=== PATIENT | male | born 1985 | race Caucasian/White ===

== ENCOUNTER 2024-04-04 23:24 | Emergency (ER) | payer OTHER, SELFPAY ==
[2024-04-04 23:31] VITALS: BP 135/84
[2024-04-05 01:17] VITALS: BMI 22.8
[2024-04-05] MEDS: MOTRIN 600 MG PO (02:40)
--- NOTE | 2024-04-05 03:27 | ED.MUSCINJ ---
HPI-Injury
General
Chief Complaint: Musculo-Skeletal Complaint
Source: patient and family (Mother reports patient fell onto his right hand)
Exam Limitations: none
Time Seen by Provider: 04/05/24 03:00
Nursing documentation reviewed up to this point in time: agreed with
History of Present Illness-Injury
Initial Injury comments:
39-year-old male slipped and fell onto his right hand, has pain in his right pinky.
Past History
Past History
ED Past Medical History: None
ED Past Surgical History: None
Social History
Tobacco: Non-smoker
Alcohol: None
Drug: None
Personal: Single
Living: with family
Employment: Employed
Review of Systems
Review of Systems
Allergies reviewed?: Yes
All Other Systems: Not applicable
Constitutional: Reports no symptoms
EENT: Reports no symptoms
Respiratory: Reports no symptoms
Cardiac: Reports no symptoms
ABD/GI: Reports no symptoms
: Reports no symptoms
Musculoskeletal: Reports joint pain and joint swelling
Skin: Reports no symptoms
Neurological: Reports no symptoms
Endocrine: Reports no symptoms
Hematologic/Lymphatic: Reports no symptoms
Psychiatric: Reports no symptoms
Phy Exam
Physical Exam
Physical Exam:
No acute distress, right fifth digit with extension deformity, neurovascularly intact
Injury Course
Orders/Labs/Results
Orders:
Orders
04/05/24 00:00
CR Finger(s)/thumb Min 2 Vw Rt Urgent
Reason For Exam: pain
Indicate Which Finger:: Little Finger
04/05/24 02:38
Ibuprofen [Motrin] 600 mg .ROUTE .STK-MED ONE
04/05/24 02:39
Ibuprofen [Motrin] 600 mg PO NOW STA
04/05/24 03:04
Finger(s)/Thumb 2 View Lt [CR Finger(s)/thumb Min 2 Vw Lt] Urgent
Comment:
Reason For Exam: left 5th finger dislocation
Procedures
Joint/Fracture Reduction
Right Distal Fifth Finger:
Indication for procedure:: Right fifth finger dislocation
Procedure completed by: Toy
Consent form signed: Yes
Joint reduced: without anesthesia
Injury was: closed
Further treatement: no treatment needed
Post reduction exam: stable
Capillary Refill: normal
Normal distal neurovascular exam?: Yes
Peripheral Pulses: radial (right): 4+
MDM/Problems Addressed
Differential Diagnosis Includes:
Fracture/dislocation
MDM/Problems Addressed:
39-year-old male with dislocation at right fifth PIP joint. Successfully reduced. No fracture seen. Follow-up with primary care, orthopedics as needed.
*Radiology
Radiology exam reviewed: preliminary read by ED provider (X-ray shows dislocation and satisfactory reduction of right fifth PIP of finger)
*Pulse Oximetry
Patient hypoxic: no
*Critical Care Note
Total Time (30-74mins, 75-104mins- exclusive of procedures): Not Applicable
Patient Management
Social determinants of health affecting care: Living situation and Strong social support
Escalation/DeEscalation of care consider admission/obs:
Admission not indicated
ED Attending Note
-
Portions of this chart may have been created with voice recognition software.� Occasional wrong word or��sound alike� substitutions may have occurred due to the inherent limitations of voice recognition software.
Discharge Plan
Departure
Patient Disposition: Home (Routine Discharge)
Date of Disposition: 04/05/24
Time of Disposition: 03:31
Patient with high blood pressure during this ER visit?: Yes
Condition: Good
Discharge Problem:
Dislocation of proximal interphalangeal joint of right little finger
Instructions: Finger Dislocation ED, BLOOD PRESSURE
Prescriptions:
No Action
divalproex 500 MG tablet extended release 24 hr
500 mg PO DAILY
cholecalciferol (vitamin D3) [Vitamin D3] 1,000 UNIT capsule
1,000 unit PO
biotin 1 MG tablet
1 mg PO
Baclofen Pump [Patient's Own Baclofen Pump:] 1 EACH Pump.Resvr
0 ea SC ACHS
Referrals:
Marline Iyer DO [Family Provider] -
Chester Montanez MD [Active] - As needed
Interventions
Interventions:
*Risk Screen - Suicide Last Done: 04/04/24 23:31
*General Assessment Last Done: 04/04/24 23:31
*Neglect/Abuse Screening Last Done: 04/04/24 23:31
*ED COVID-19 Vaccine History Last Done: 04/04/24 23:31
ED-Musculoskeletal Assessment Last Done: 04/05/24 00:46
Discharge Date and Time
Print Language: TRISTANIAN
== END 2024-04-05 03:34 | disposition home or self-care (01) ==
LOC: EMR 23:24
PROVIDERS: EMERGENCY PHYSICIAN Emergency Medicine; FAMILY PHYSICIAN Internal Medicine
DX: S63.286A Dislocation of proximal interphalangeal joint of right little finger, initial encounter (principal); W01.0XXA Fall on same level from slipping, tripping and stumbling without subsequent striking against object, initial encounter
CPT/HCPCS: 99283; 26770; 73140